=== PATIENT | male | born 1945 | race Caucasian/White ===

== ENCOUNTER → 2024-02-15 06:50 | Outpatient (REF) | payer MEDICARE, SELFPAY ==
[2024-02-15] MEDS: LEXISCAN 0.400000000000000022 MG IV (08:28)
== END ==
LOC: RCS 06:50
PROVIDERS: ATTENDING PHYSICIAN Internal Medicine Cardiovascular Disease; FAMILY PHYSICIAN Student in an Organized Health Care Education/Training Program
DX: Z01.810 Encounter for preprocedural cardiovascular examination (principal); R06.09 Other forms of dyspnea
CPT/HCPCS: 78452; 93017; A9500; J2785

== ENCOUNTER → 2024-02-21 15:03 | Outpatient (REF) | payer MEDICARE, SELFPAY | LOC: HWRCS 15:03 | PROVIDERS: ATTENDING PHYSICIAN Internal Medicine Cardiovascular Disease; FAMILY PHYSICIAN Student in an Organized Health Care Education/Training Program | DX: Z01.810 Encounter for preprocedural cardiovascular examination (principal); R06.09 Other forms of dyspnea | CPT/HCPCS: 93306 ==